=== PATIENT | female | born 1990 | race African-American/Black ===

== ENCOUNTER 2017-03-05 16:32 | Emergency (ER) | payer SELFPAY ==
[2017-03-05] MEDS ORDERED: MAG HYDROX/AL HYDROX/SIMETH SUSP 30 ML UDCUP PO ONE (17:24)
[2017-03-05] MEDS ORDERED: METOCLOPRAMIDE HCL ORAL SOLN 10 MG/10 ML UDCUP PO ONE (17:24)
[2017-03-05] MEDS ORDERED: LIDOCAINE 2% VISCOUS SOLN 20 ML UDCUP PO ONE (17:24)
[2017-03-05 17:51] LABS: ABSOLUTE EOSINOPHILS # (AUTO) 0.1 10^3/uL (0.0-0.6); ABSOLUTE LYMPHOCYTES (AUTO) 1.5 10^3/uL (0.5-4.7); ABSOLUTE MONOCYTES (AUTO) 0.5 10^3/uL (0.1-1.4); ABSOLUTE NEUT (AUTO) 4.5 10^3/uL (1.7-8.2); BASOPHILS % (AUTO) 0.3 % (0-2); HEMATOCRIT 35.2 % (36.0-47.0); HEMOGLOBIN 11.5 g/dL (12.0-15.5); HGB HCT DIFFERENCE -0.7; LYMPHOCYTES % (AUTO) 22.5 % (13-45); MEAN CORPUSCULAR HEMOGLOBIN 25.5 pg (27.0-33.4); MEAN CORPUSCULAR HGB CONC 32.7 g/dL (32.0-36.0); MEAN CORPUSCULAR VOLUME 78 fl (80-97); MONOCYTES % (AUTO) 7.7 % (3-13); RED BLOOD COUNT 4.51 10^6/uL (3.72-5.28); RED CELL DISTRIBUTION WIDTH 14.9 % (11.5-14.0); SEGMENTED NEUTROPHILS % (AUTO) 67.5 % (42-78); WHITE BLOOD COUNT 6.7 10^3/uL (4.0-10.5)
[2017-03-05 18:02] LABS: APPEARANCE,URINE CLOUDY; BILIRUBIN,URINE NEGATIVE (NEGATIVE); GLUCOSE, URINE NEGATIVE (NEGATIVE); KETONES,URINE NEGATIVE (NEGATIVE); LEUKOCYTE ESTERASE,URINE NEGATIVE (NEGATIVE); NITRITE,URINE NEGATIVE (NEGATIVE); PROTEIN,URINE 100 mg/dL (NEGATIVE); UROBILINOGEN,URINE NEGATIVE mg/dL (<2.0)
[2017-03-05 18:16] LABS: ALANINE AMINOTRANSFERASE 162 U/L (9-52); ALBUMIN 4.6 g/dL (3.5-5.0); ALKALINE PHOSPHATASE 88 U/L (38-126); ANION GAP 16 (5-19); ASPARTATE AMINO TRANSFERASE 117 U/L (14-36); BILIRUBIN,DIRECT 0.4 mg/dL (0.0-0.4); BILIRUBIN,TOTAL 0.7 mg/dL (0.2-1.3); BLOOD UREA NITROGEN 8 mg/dL (7-20); CALCIUM 9.8 mg/dL (8.4-10.2); CARBON DIOXIDE 25 mmol/L (22-30); CHLORIDE 104 mmol/L (98-107); GLUCOSE 97 mg/dL (75-110); LIPASE 72.5 U/L (23-300); POTASSIUM 3.8 mmol/L (3.6-5.0); SODIUM 145.1 mmol/L (137-145); TOTAL PROTEIN 8.3 g/dL (6.3-8.2)
--- NOTE | 2017-03-05 20:38 | ER Document Report ---
ED General - General Chief Complaint: Abdominal Pain Stated Complaint: ABDOMINAL PAIN TRAVEL OUTSIDE OF THE [place] IN LAST 30 DAYS: No - HPI Patient complains to provider of: epigastric abdominal pain nausea diarrhea Notes: Patient coming in with epigastric abdominal pain radiates to her back on the right side. Patient also complains of nausea and diarrhea. Patient states symptoms ongoing since Thursday denies any fevers denies any sick contacts denies any recent antibiotics. - Related Data Allergies/Adverse Reactions: No Known Allergies Allergy (Verified 03/05/17 16:53) Past Medical History - Social History Smoking Status: Never Smoker Chew tobacco use (# tins/day): No Frequency of alcohol use: None Drug Abuse: None Family History: Reviewed & Not Pertinent Renal/ Medical History: Denies: Hx Peritoneal Dialysis Past Surgical History: Reports: Hx Section - Immunizations Immunizations up to date: Yes Hx Diphtheria, Pertussis, Tetanus Vaccination: Yes - 09/27/13 Review of Systems - Review of Systems Constitutional: No symptoms reported EENT: No symptoms reported Cardiovascular: No symptoms reported Respiratory: No symptoms reported Gastrointestinal: Abdominal pain, Diarrhea, Nausea Genitourinary: No symptoms reported Female Genitourinary: No symptoms reported Musculoskeletal: No symptoms reported Skin: No symptoms reported Hematologic/Lymphatic: No symptoms reported Neurological/Psychological: No symptoms reported -: Yes All other systems reviewed and negative Physical Exam - Vital signs Vitals: Temp Pulse Resp BP Pulse Ox 98.5 F 95 18 141/70 H 98 03/05/17 16:35 03/05/17 16:35 03/05/17 16:35 03/05/17 16:35 03/05/17 16:35 Interpretation: Normal - General General appearance: Appears well, Alert - HEENT Head: Normocephalic, Atraumatic Eyes: Normal Pupils: PERRL - Respiratory Respiratory status: No respiratory distress Chest status: Nontender Breath sounds: Normal Chest palpation: Normal - Cardiovascular Rhythm: Regular Heart sounds: Normal auscultation Murmur: No - Abdominal Inspection: Normal Distension: No distension Bowel sounds: Normal Tenderness: Tender - Mild epigastric. No: McBurney's point, Ingram's sign, Guarding, Rebound Organomegaly: No organomegaly - Back Back: Normal, Nontender - Extremities General upper extremity: Normal inspection, Nontender, Normal color, Normal ROM , Normal temperature General lower extremity: Normal inspection, Nontender, Normal color, Normal ROM , Normal temperature, Normal weight bearing. No: Bk's sign - Neurological Neuro grossly intact: Yes Cognition: Normal Orientation: AAOx4 Mariaelena Coma Scale Eye Opening: Spontaneous Egnar Coma Scale Verbal: Oriented Egnar Coma Scale Motor: Obeys Commands Egnar Coma Scale Total: 15 Speech: Normal Motor strength normal: LUE, RUE, LLE, RLE Sensory: Normal - Psychological Associated symptoms: Normal affect, Normal mood - Skin Skin Temperature: Warm Skin Moisture: Dry Skin Color: Normal Course - Re-evaluation Re-evalutation: 03/05/17 22:25 Patient coming in for Vladimir pain epigastric. Patient ultrasound this shows signs of gallstones. Patient has no signs of acute cholecystitis. Lab work also reveals no critical etiology. Patient's symptoms did improve the GI cocktail because of epigastric pain possible early gastritis. Patient was educated on treatment of both her gallstones and gastritis. Patient will be discharged home with medications for her symptoms - Vital Signs Vital signs: Temp Pulse Resp BP Pulse Ox 98.5 F 81 20 151/91 H 98 03/05/17 16:37 03/05/17 21:25 03/05/17 16:37 03/05/17 21:25 03/05/17 21:25 - Laboratory Result Diagrams: 03/05/17 17:15 03/05/17 17:15 Laboratory results interpreted by me: 03/05/17 03/05/17 03/05/17 17:15 17:15 17:15 Hgb 11.5 L Hct 35.2 L MCV 78 L MCH 25.5 L RDW 14.9 H Sodium 145.1 H AST 117 H ALT 162 H Total Protein 8.3 H Urine Protein 100 H Urine Blood LARGE H Discharge - Discharge Clinical Impression: Nausea, Gallstones Condition: Good Disposition: HOME, SELF-CARE Instructions: Abdominal Pain ([facility]), Low-Fat Diet ([facility]), Gastritis ([facility]) Additional Instructions: Your ultrasound shows signs of gallstones in her gallbladder. This will cause pain whenever you eat any food with fat or grease. Please avoid those foods. Also with the relief of pain from a GI cocktail there is a possibility mild gastritis. We will send home medication to help out with the abdominal pain and nausea. Please follow-up with your Dr. Prescriptions: Ondansetron [Zofran Odt 4 mg Tablet] 1 - 2 tab PO Q4H PRN #30 tab.rapdis PRN Reason: For Nausea/Vomiting Ranitidine HCl [Zantac 75 mg Tablet] 75 mg PO BID #30 tablet Referrals: SID ALAS MD [Primary Care Provider] - Follow up in 3-5 days
[2017-03-05 21:40] VITALS: BP 151/91
== END 2017-03-05 21:42 | disposition home or self-care (01) ==
LOC: ER 16:32
DX: R11.0 Nausea (principal); K80.80 Other cholelithiasis without obstruction; R10.13 Epigastric pain; R19.7 Diarrhea, unspecified
CPT/HCPCS: 99284; 36415; 83690; 85025; 81025; 80053; 81001; 76705; J3490

== ENCOUNTER 2020-06-14 08:40 | Emergency (ER) | payer BC ==
--- NOTE | 2020-06-14 09:22 | EKG REPORT ---
SEVERITY:- NORMAL ECG - SINUS RHYTHM : Confirmed by: Esteban Cardona 14-Jun-2020 09:22:00
[2020-06-14 10:11] LABS: ABSOLUTE EOSINOPHILS # (AUTO) 0.1 10^3/uL (0.0-0.6); ABSOLUTE LYMPHOCYTES (AUTO) 1.1 10^3/uL (0.5-4.7); ABSOLUTE MONOCYTES (AUTO) 0.3 10^3/uL (0.1-1.4); ABSOLUTE NEUT (AUTO) 4.1 10^3/uL (1.7-8.2); BASOPHILS % (AUTO) 0.5 % (0-2); EOSINOPHILS % (AUTO) 1.4 % (0-6); HEMATOCRIT 27.6 % (36.0-47.0); HEMOGLOBIN 8.7 g/dL (12.0-15.5); LYMPHOCYTES % (AUTO) 19.8 % (13-45); MEAN CORPUSCULAR HEMOGLOBIN 20.2 pg (27.0-33.4); MEAN CORPUSCULAR HGB CONC 31.6 g/dL (32.0-36.0); MONOCYTES % (AUTO) 4.8 % (3-13); PLATELET COUNT 304 10^3/uL (150-450); RED CELL DISTRIBUTION WIDTH 19.3 % (11.5-14.0); SEGMENTED NEUTROPHILS % (AUTO) 73.5 % (42-78); TOTAL CELLS COUNTED % (AUTO) 100 %; WHITE BLOOD COUNT 5.5 10^3/uL (4.0-10.5)
--- NOTE | 2020-06-14 10:24 | ER Document Report ---
ED General - General Chief Complaint: Chest Pain Stated Complaint: CHEST PAIN Time Seen by Provider: 06/14/20 10:02 Primary Care Provider: SID ALAS MD [Primary Care Provider] - Follow up as needed Notes: Patient presents with chest pain like she swallowed glass pleuritic since last night, went away by her to bed last night around 10:00 and then resumed this morning about 5 hours ago. Non-positional. Nonradiating no cough no shortness of breath no leg swelling no control no smoking no family history of DVT. Morbidly obese. TRAVEL OUTSIDE OF THE [place] IN LAST 30 DAYS: No - Related Data Allergies/Adverse Reactions: No Known Allergies Allergy (Verified 03/05/17 16:53) Past Medical History - General Information source: Patient - Social History Smoking Status: Never Smoker Frequency of alcohol use: None Drug Abuse: None Family History: Reviewed & Not Pertinent Renal/ Medical History: Denies: Hx Peritoneal Dialysis Past Surgical History: Reports: Hx Section - Immunizations Immunizations up to date: Yes Hx Diphtheria, Pertussis, Tetanus Vaccination: Yes - 09/27/13 Review of Systems - Review of Systems Notes: REVIEW OF SYSTEMS GEN: Denies fever, chills, weight loss ENT: Denies sore throat, nasal discharge, ear pain EYES: Denies blurry vision, eye pain, discharge CV: Pain RESP: Denies cough, shortness of breath, wheezing GI: Denies abdominal pain, nausea, vomiting, diarrhea MSK: Denies joint pain/swelling, edema, SKIN: Denies rash, skin lesions LYMPH: Denies swollen glands/lymph nodes NEURO: Denies headache, focal weakness or numbness, dizziness PSYCH: Denies depression, suicidal or homicidal ideation PHYSICAL EXAMINATION General: Obese. No acute distress, well-nourished Head: Atraumatic, normocephalic ENT: Mouth normal, oropharynx moist, no exudates or tonsillar enlargement Eyes: Conjunctiva normal, pupils equal, lids normal Neck: No JVD, supple, no guarding CVS: Cardiac. Normal rate, regular rhythm, no murmurs Resp: No resp distress, equal and normal breath sounds bilaterally GI: Nondistended, soft, no tenderness to palpation, no rebound or guarding Ext: No deformities, no edema, normal range of motion in upper and lower ext Back: No CVA or midline TTP Skin: No rash, warm Lymphatic: No lymphadeopathy noted Neuro: Awake, alert. Face symmetric. GCS 15. Physical Exam - Vital signs Vitals: Temp Pulse Resp BP Pulse Ox 98.3 F 79 19 150/105 H 100 06/14/20 08:56 06/14/20 08:56 06/14/20 08:56 06/14/20 08:56 06/14/20 08:56 Course - Re-evaluation Re-evalutation: 06/14/20 15:02 Patient presents with chest pain which has characteristics of chest wall pain but also PE and she is morbidly obese with tachycardia Went straight for CT. No PE, possible infiltrate? Given the pleuritic nature of her pain we will treat her for pneumonia although this is probably just atelectasis from splinting secondary to chest wall pain. Heart rate came down spontaneously and she was discharged in stable condition. She did have anemia which she knows is chronic and is on iron for. She is probably not the primary care regarding this and heavy periods I have discussed with the patient there likely diagnosis, aftercare plan, follow-up plans and my usual and customary return precautions. They verbalized understanding of this. - Vital Signs Vital signs: Temp Pulse Resp BP Pulse Ox 98.3 F 79 20 144/96 H 98 06/14/20 08:56 06/14/20 08:56 06/14/20 11:48 06/14/20 11:48 06/14/20 11:00 - Laboratory Result Diagrams: 06/14/20 10:02 06/14/20 10:02 Laboratory results interpreted by me: 06/14/20 10:02 Hgb 8.7 L Hct 27.6 L MCV 64 L MCH 20.2 L MCHC 31.6 L RDW 19.3 H - Diagnostic Test Radiology reviewed: Image reviewed, Reports reviewed - EKG Interpretation by Me EKG shows normal: Sinus rhythm Rate: Tachycardia Rhythm: NSR - No biventricular strain or ischemia noted Discharge - Discharge Clinical Impression: Left lower lobe pneumonia Qualifiers: Pneumonia type: due to unspecified organism Qualified Code(s): J18.9 - Pneumonia, unspecified organism Anemia, unspecified Qualifiers: Anemia type: other cause Condition: Good Disposition: HOME, SELF-CARE Instructions: Chest Wall Pain ([facility]), Pneumonia ([facility]) Additional Instructions: Your labs do not show a blood clot or heart attack. Perhaps small pneumonia developing. Will start antibiotics. You to follow-up with your regular doctor as you are quite anemic and this needs further testing. Prescriptions: Doxycycline Hyclate 100 mg PO BID #20 tablet.dr Forms: Return to Work Referrals: SID ALAS MD [Primary Care Provider] - Follow up as needed
[2020-06-14 10:32] LABS: ALBUMIN 4.2 g/dL (3.5-5.0); ALKALINE PHOSPHATASE 66 U/L (38-126); ANION GAP 6 (5-19); ASPARTATE AMINO TRANSFERASE 27 U/L (14-36); BILIRUBIN,TOTAL 0.5 mg/dL (0.2-1.3); BLOOD UREA NITROGEN 7 mg/dL (7-20); CARBON DIOXIDE 27 mmol/L (22-30); CHLORIDE 107 mmol/L (98-107); CREATINE KINASE 114 U/L (30-135); GLUCOSE 91 mg/dL (75-110); POTASSIUM 3.9 mmol/L (3.6-5.0); TOTAL PROTEIN 7.7 g/dL (6.3-8.2)
--- NOTE | 2020-06-14 10:37 | RADIOLOGY REPORT (SQ) ---
EXAM DESCRIPTION: CHEST 2 VIEWS IMAGES COMPLETED DATE/TIME: 06/14/2020 10:28 am REASON FOR STUDY: chest pain COMPARISON: 11/04/2015 EXAM PARAMETERS: NUMBER OF VIEWS: two views TECHNIQUE: Digital Frontal and Lateral radiographic views of the chest acquired. RADIATION DOSE: NA LIMITATIONS: none FINDINGS: LUNGS AND PLEURA: No opacities, masses or pneumothorax. No pleural effusion. MEDIASTINUM AND HILAR STRUCTURES: No masses or contour abnormalities. HEART AND VASCULAR STRUCTURES: Heart normal size. No evidence for failure. BONES: No acute findings. HARDWARE: None in the chest. OTHER: No other significant finding. IMPRESSION: NO ACUTE RADIOGRAPHIC FINDING IN THE CHEST. TECHNICAL DOCUMENTATION: JOB ID: [id number] 2010 [employer]- All Rights Reserved Reading location - IP/workstation name: [email or web address]
[2020-06-14 10:45] LABS: CREATINE KINASE MB 0.84 ng/mL (<4.55); TROPONIN I < 0.012 ng/mL
[2020-06-14 10:53] LABS: MEAN CORPUSCULAR VOLUME 64 fl (80-97)
[2020-06-14 10:54] LABS: ANISOCYTOSIS 2+; OVALOCYTES SLIGHT; PLATELET COMMENT ADEQUATE; POIKILOCYTOSIS SLIGHT; POLYCHROMASIA SLIGHT
--- NOTE | 2020-06-14 11:12 | RADIOLOGY REPORT (SQ) ---
EXAM DESCRIPTION: CTA CHEST IMAGES COMPLETED DATE/TIME: 06/14/2020 10:50 am REASON FOR STUDY: CPpleuroitc, tachy COMPARISON: None. TECHNIQUE: CT scan of the chest performed using helical scanning technique with dynamic intravenous contrast injection. Images reviewed with lung, soft tissue and bone windows. Reconstructed coronal and sagittal MPR images reviewed. Additional 3 dimensional post-processing performed to develop Maximal Intensity Projection images ([place] P). All images stored on PACS. All CT scanners at this facility use dose modulation, iterative reconstruction, and/or weight based d osing when appropriate to reduce radiation dose to as low as reasonably achievable (ALARA). [facility]: Dose Right [facility]: CareDose [facility]: Dose Right [facility]: Teradose 4D [facility]: Intellisense CONTRAST TYPE AND DOSE: contrast/concentration: Isovue 350.00 mmol/ml; Total Contrast Delivered: 75. 0 ml; Total Saline Delivered: 40.3 ml Contrast bolus optimized for the pulmonary arteries. Not diagnostic for the aorta. RENAL FUNCTION: GFR > 60. RADIATION DOSE: CT Rad equipment meets quality standard of care and radiation dose reduction techniq ues were employed. CTDIvol: 19.8 - 40.6 mGy. DLP: 1576 mGy-cm. . LIMITATIONS: None. FINDINGS: LUNGS AND PLEURA: Patchy ground-glass attenuation in the left lower lobe. No consolidatio n. No effusions. AORTA AND GREAT VESSELS: No aneurysm. Contrast bolus not optimized for the aorta. HEART: No pericardial effusion. No significant coronary artery calcifications. PULMONARY ARTERIES: No emboli visualized in the main pulmonary arteries or the segmental branches. HILAR AND MEDIASTINAL STRUCTURES: No identified masses or abnormal nodes. HARDWARE: None in the chest. UPPER ABDOMEN: No significant findings. Limited exam. THYROID AND OTHER SOFT TISSUES: No masses. No adenopathy. BONES: No acute or significant finding. 3D MIPS: Confirm above findings. OTHER: No other significant finding. IMPRESSION: 1. No PE. 2. Atelectasis or early pneumonia left lower lobe. COMMENT: Quality ID # [id number]: Final reports with documentation of one or more dose reduction techniques (e.g., Automated exposure control, adjustment of the mA and/or kV according to patient size, use of iterative reconstruction technique) TECHNICAL DOCUMENTATION: JOB ID: [id number] 2010 [employer]- All Rights Reserved Reading location - IP/workstation name: [email or web address]
[2020-06-14 11:52] VITALS: BP 144/96
[2020-06-15 13:12] LABS: PATH REVIEW PATHOLOGIST REVIEWED
== END 2020-06-14 11:53 | disposition home or self-care (01) ==
LOC: ER 08:40
DX: J18.9 Pneumonia, unspecified organism (principal); E66.01 Morbid (severe) obesity due to excess calories; R00.0 Tachycardia, unspecified
CPT/HCPCS: 36415; 71046; 71275; 80053; 82550; 82553; 84484; 85025; 93005; 93010; 99285

== ENCOUNTER 2020-10-08 07:59 | Emergency (ER) | payer BC ==
[2020-10-08 09:19] LABS: ABSOLUTE MONOCYTES (AUTO) 0.4 10^3/uL (0.1-1.4); ABSOLUTE NEUT (AUTO) 5.1 10^3/uL (1.7-8.2); BASOPHILS % (AUTO) 0.1 % (0-2); EOSINOPHILS % (AUTO) 0.4 % (0-6); HEMOGLOBIN 12.1 g/dL (12.0-15.5); LYMPHOCYTES % (AUTO) 15.9 % (13-45); MEAN CORPUSCULAR HEMOGLOBIN 26.8 pg (27.0-33.4); MEAN CORPUSCULAR HGB CONC 34.5 g/dL (32.0-36.0); MEAN CORPUSCULAR VOLUME 78 fl (80-97); PLATELET COUNT 253 10^3/uL (150-450); RED BLOOD COUNT 4.49 10^6/uL (3.72-5.28); SEGMENTED NEUTROPHILS % (AUTO) 77.6 % (42-78); TOTAL CELLS COUNTED % (AUTO) 100 %; WHITE BLOOD COUNT 6.6 10^3/uL (4.0-10.5)
[2020-10-08 09:21] LABS: APPEARANCE,URINE CLOUDY; BILIRUBIN,URINE NEGATIVE (NEGATIVE); COLOR,URINE YELLOW; GLUCOSE, URINE NEGATIVE (NEGATIVE); KETONES,URINE TRACE mg/dL (NEGATIVE); LEUKOCYTE ESTERASE,URINE SMALL (NEGATIVE); NITRITE,URINE NEGATIVE (NEGATIVE); PROTEIN,URINE NEGATIVE (NEGATIVE); UROBILINOGEN,URINE NEGATIVE mg/dL (<2.0)
[2020-10-08 09:40] LABS: ALBUMIN 4.2 g/dL (3.5-5.0); ALKALINE PHOSPHATASE 60 U/L (38-126); ANION GAP 10 (5-19); ASPARTATE AMINO TRANSFERASE 18 U/L (14-36); BILIRUBIN,TOTAL 0.2 mg/dL (0.2-1.3); BLOOD UREA NITROGEN 4 mg/dL (7-20); CALCIUM 9.9 mg/dL (8.4-10.2); CARBON DIOXIDE 22 mmol/L (22-30); CHLORIDE 103 mmol/L (98-107); GLUCOSE 84 mg/dL (75-110); POTASSIUM 3.9 mmol/L (3.6-5.0); TOTAL PROTEIN 7.6 g/dL (6.3-8.2)
[2020-10-08 09:52] LABS: ANISOCYTOSIS SLIGHT; HYPOCHROMASIA SLIGHT
--- NOTE | 2020-10-08 09:52 | ER Document Report ---
ED General - General Chief Complaint: Abdominal Pain Stated Complaint: ABDOMINAL PAIN Time Seen by Provider: 10/08/20 09:31 Primary Care Provider: SID ALAS MD [Primary Care Provider] - Follow up as needed Notes: 29-year-old female who is 2 para 1 Ab0 whose last menstrual period was June 15 presents to the emergency department complaining of some lower abdominal cramping, denies any vaginal bleeding. Denies any falls or trauma. The patient has seen her RENTAL SALES REPRESENTATIVE at women's services here at [place]. She has had no issues. She denies any significant vaginal discharge. States she occasionally has some clear discharge but that is normal she had a Pap smear the end of August which was normal. TRAVEL OUTSIDE OF THE [place] IN LAST 30 DAYS: No - Related Data Allergies/Adverse Reactions: No Known Allergies Allergy (Verified 03/05/17 16:53) Home Medications: . levothyroxine. iron tab Past Medical History - Social History Smoking Status: Never Smoker Chew tobacco use (# tins/day): No Frequency of alcohol use: None Drug Abuse: None Family History: Reviewed & Not Pertinent Patient has homicidal ideation: No Renal/ Medical History: Denies: Hx Peritoneal Dialysis Past Surgical History: Reports: Hx Section - Immunizations Immunizations up to date: Yes Hx Diphtheria, Pertussis, Tetanus Vaccination: Yes - 09/27/13 Review of Systems - Review of Systems Constitutional: denies: Chills, Fever Gastrointestinal: Abdominal pain. denies: Diarrhea, Nausea, Vomiting Genitourinary: denies: Dysuria, Hematuria Female Genitourinary: , Vaginal discharge. denies: Vaginal bleeding Musculoskeletal: denies: Back pain Skin: No symptoms reported Neurological/Psychological: No symptoms reported -: Yes All other systems reviewed and negative Physical Exam - Vital signs Vitals: Temp Pulse Resp BP Pulse Ox 98.1 F 93 18 155/104 H 99 10/08/20 08:04 10/08/20 08:04 10/08/20 08:04 10/08/20 08:04 10/08/20 08:04 - Notes Notes: GENERAL_APPEARANCE: well_nourishedmorbidly obese, alert, cooperative, no_acute_distress, no_obvious_discomfort. VITALS: reviewed, see vital signs table. HEAD: no_swelling\tenderness on the head. EYES: Sclera anicteric, conjunctiva_clear. NOSE: no_nasal_discharge. MOUTH: (-)decreased moisture. THROAT: no_tonsilar_inflammation, no_airway_obstruction. no_lymphadenopathy NECK: supple, no_neck_tenderness, (-)thyromegaly. BACK: no_back_tenderness. CHEST_WALL: no_chest_tenderness. LUNGS: no_wheezing, no_rales, no_rhonchi, (-)accessory muscle use, good air exchange bilateral. HEART: normal_rate, normal_rhythm, normal_S1, normal_S2, (-)S3, (-)S4, no_murmur, no_rub. ABDOMEN: soft, no_abd_tenderness, (-)guarding, (-)rebound, no_organomegaly, uterus is below the umbilicus though difficult to palpate due to body habitus EXTREMITIES: good pulses in all_extremities, no_swelling\tenderness in the extremities, trace_edema. SKIN: warm, dry, good_color, no_rash. MENTAL_STATUS: speech_clear, oriented_X_3, normal_affect, responds_appropriately to questions. Course - Re-evaluation Re-evalutation: 10/08/20 09:52 29-year-old female presents to the emergency department complaints of lower abdominal cramping. Patient is 19 weeks . She has broached this with her RENTAL SALES REPRESENTATIVE but they told her it is just a normal discomfort of and broad ligament stretching. She has come here to be reevaluated. She denies any bleeding. She had a full pelvic work-up and exam by her RENTAL SALES REPRESENTATIVE at the end the last month. States that she has not had any increase in discharge still has been a clear discharge which is been her norm. Denies hematuria or dysuria denies flank pain denies nausea vomiting. Doing blood work will type and screen her urinalysis and ultrasound. 10/08/20 10:45 Ultrasound shows a live IUP. There is some irregularity to the placenta which could be a small hemorrhage or fibroid. Up with RENTAL SALES REPRESENTATIVE and repeat ultrasound is recommended. I spoke with the patient about this. She does have a small UTI will place her on Macrobid. Again blood pressure has been elevated. The patient is aware of this and has been working with her RENTAL SALES REPRESENTATIVE. They have been delaying putting her on any medicine for -induced hypertension. She is keeping track of her blood pressures. I think it is a little more elevated than normal due to being in the ER and white coat syndrome. Advised her to follow-up with her RENTAL SALES REPRESENTATIVE and continue the discussion about her blood pressure she has no blurred vision no extremity numbness tingling or weakness no chest pain. This is asymptomatic at this time. - Vital Signs Vital signs: Temp Pulse Resp BP Pulse Ox 98.1 F 93 18 155/104 H 99 10/08/20 08:04 10/08/20 08:04 10/08/20 08:04 10/08/20 08:04 10/08/20 08:04 - Laboratory Result Diagrams: 10/08/20 09:00 10/08/20 09:00 Laboratory results interpreted by me: 10/08/20 10/08/20 10/08/20 09:00 09:00 09:00 Hct 35.0 L MCV 78 L MCH 26.8 L RDW 15.0 H Sodium 134.8 L BUN 4 L Creatinine 0.40 L Beta HCG, Quant 82524.00 H Urine Ketones TRACE H Urine Blood SMALL H Ur Leukocyte Esterase SMALL H - Diagnostic Test Radiology reviewed: Reports reviewed Radiology results interpreted by me: 10/08/20 10:45 Obstetrics Ultrasound 10/08/20 09:40 IMPRESSION: LIVE INTRAUTERINE . ESTIMATED GESTATIONAL AGE 16 weeks 3 days. THE AREA OF LOW ATTENUATION IN THE RETROPLACENTAL SPACE COULD REPRESENT A FOCAL RETROPLACENTAL MYOMETRIAL CONTRACTION, A RETROPLACENTAL UTERINE LEIOMYOMA OR A RETROPLACENTAL HEMORRHAGE. CONSIDER A FOLLOW-UP ULTRASOUND TO REASSESS THE FINDING. Trimester of : Second trimester - 13 weeks 1 day to 27 weeks 6 days. Discharge - Discharge Clinical Impression: Threatened induced hypertension Qualifiers: Trimester: second trimester Qualified Code(s): O13.2 - Gestational [- induced] hypertension without significant proteinuria, second trimester UTI (urinary tract infection) Qualifiers: Urinary tract infection type: acute cystitis Hematuria presence: without hematuria Qualified Code(s): N30.00 - Acute cystitis without hematuria Condition: Good Disposition: HOME, SELF-CARE Instructions: Nitrofurantoin ([facility]), Ob-Bl[facility] [place] [facility], ([facility]), Threatened Miscarriage ([facility]), Urinary Tract Infection ([facility]) Additional Instructions: Please keep track your blood pressures and follow-up with your RENTAL SALES REPRESENTATIVE as instructed you may need blood pressure medicine if your blood pressure continues to be high. Because of the sensitive nature and effects on the baby we prefer your RENTAL SALES REPRESENTATIVE place you on the medicine and can be safely monitored. If you develop any significant symptoms headache blurred vision extremity numbness tingling or any weakness or chest pain return to the ER immediately Prescriptions: Nitrofurantoin Monohyd/M-Cryst [Macrobid 100 mg Capsule] 100 mg PO BID #10 cap Referrals: SID ALAS MD [Primary Care Provider] - Follow up as needed
[2020-10-08 09:53] LABS: PLATELET COMMENT ADEQUATE
--- NOTE | 2020-10-08 10:34 | RADIOLOGY REPORT (SQ) ---
EXAM DESCRIPTION: U/S OB 14+ TRNABD 1GES W/O DOP IMAGES COMPLETED DATE/TIME: 10/08/2020 10:16 am REASON FOR STUDY: abd pain COMPARISON: None. TECHNIQUE: Static and Dynamic grayscale imaging performed of gravid uterus using transabdominal appr oach. Additional selected color Doppler and spectral images recorded. All stored on PACS. LIMITATIONS: None. FINDINGS: FETUSES SEEN:1 EGA: 16 weeks 2 days Calculated using BPD,FL,HC,AC documented on images. No discrepancy with clinica l dates. JESSICA: 03/23/2021. EFW: 146 grams LVP: 4.1 x 2.9 cm. PLACENTA: Anterior. PRESENTATION: Variable. ANATOMY: HEART RATE: 162 beats per minute. FOUR CHAMBER HEART: Visualized. OTHER: The area of low attenuation in the retroplacental space could represent a focal retroplacental myometrial contraction, a retroplacental uterine leiomyoma or a retroplacental hemorrhage. MATERNAL ADNEXA: The ovaries were visualized and appear within normal limits. There is no adnexal ma ss. CERVICAL LENGTH: 3.4 cm Closed. OTHER: No other findings. IMPRESSION: LIVE INTRAUTERINE . ESTIMATED GESTATIONAL AGE 16 weeks 3 days. THE AREA OF LOW ATTENUATION IN THE RETROPLACENTAL SPACE COULD REPRESENT A FOCAL RETROPLACENTAL MYOMET RIAL CONTRACTION, A RETROPLACENTAL UTERINE LEIOMYOMA OR A RETROPLACENTAL HEMORRHAGE. CONSIDER A FOLL OW-UP ULTRASOUND TO REASSESS THE FINDING. Trimester of : Second trimester - 13 weeks 1 day to 27 weeks 6 days. TECHNICAL DOCUMENTATION: JOB ID: [id number] 2010 [employer]- All Rights Reserved Reading location - IP/workstation name: [email or web address]
[2020-10-08 11:18] VITALS: BP 136/81
== END 2020-10-08 11:21 | disposition home or self-care (01) ==
LOC: ER 07:59
DX: O23.12 Infections of bladder in pregnancy, second trimester (principal); O20.0 Threatened abortion; O13.2 Gestational [pregnancy-induced] hypertension without significant proteinuria, second trimester; Z3A.19 19 weeks gestation of pregnancy; Z79.899 Other long term (current) drug therapy
CPT/HCPCS: 36415; 76805; 80053; 81001; 83690; 84702; 85025; 86900; 86901; 99284